=== PATIENT | female | born 1950 | race Caucasian/White ===

== ENCOUNTER 2017-02-17 06:58 | Emergency (ER) | payer OTHER ==
[2017-02-17] MEDS ORDERED: ALBUTEROL SULFATE 2.5 MG/3 ML AMPUL.NEB NEB ONE (07:00)
[2017-02-17] MEDS: ASPIRIN 81 MG CHEW TAB PO ONE (07:15)
[2017-02-17] MEDS: ALBUTEROL SULFATE 2.5 MG/3 ML AMPUL.NEB NEB ONE (07:15)
[2017-02-17 07:20] LABS: BASOPHILS % 0.9 (0.0-1.5); EOSINOPHILS % 1.8 % (0.0-6.8); MEAN CORPUSCULAR HEMOGLOBIN 30.7 pg (28.0-34.0); MEAN CORPUSCULAR VOLUME 92.3 fl (80.0-100.0); MONOCYTES % 3.1 % (0.0-11.0); NEUTROPHILS # 3.5 # k/uL (1.4-7.7)
[2017-02-17 07:39] LABS: eGFR (African) > 60; eGFR (Non-African) > 60
[2017-02-17] MEDS: NITROGLYCERIN 0.4 MG TAB.SUBL SL ONE (08:25)
[2017-02-17] MEDS ORDERED: 0.9 % SODIUM CHLORIDE 1,000 ML IV ONE (08:31)
[2017-02-17] MEDS: ENALAPRILAT DIHYDRATE 1.25 MG/1 ML IVP ONE (08:40)
[2017-02-17] MEDS: FUROSEMIDE 40 MG/4 ML VIAL IVP ONE (09:20)
--- NOTE | 2017-02-17 09:39 | Diagnostic Imaging Report ---
[facility] [id number] [facility] [address] [place], [place]. [address] Report Submission Date: Feb 17, 2017 9:09:40 AM CDT Patient Study Name: ALIS EILZABETH Date: Feb 17, 2017 7:31:27 AM CDT Modality Type: CR Gender: F Description: CHEST : 54 Institution: [facility] Physician: KINJAL FARRIS - ER Examination: PA and lateral chest. History: Evaluate lung joe. Comparison exam: 04 Jan 2014 Findings: PA lateral chest demonstrates it mildly prominent cardiac silhouette. Parenchymal haze as involving the right hilum. Remaining lung joe are clear. No blunting of the costophrenic margins. Osseous structures are appropriate for age. Impression: Mild right hilar infiltrate. No effusion. Electronically signed on Feb 17, 2017 9:09:40 AM CDT by: Angel CHO
--- NOTE | 2017-02-17 10:52 | ED Physician Documentation ---
Dyspnea - HISTORIAN Historian: spouse - HPI Stated Complaint: chest pain; shortness of breath Chief Complaint: Dyspnea Additional Information: prog sob past several days 8# wt gain chest pain-off meds x 1yr Duration: continues in ED Initiating Event: upper respiratory illness (cough prod clear mucous) Severity: moderate Exacerbated By: exertion, laying flat, coughing Associated Symptoms: chest discomfort, productive cough, heart racing - ROS CONST: weakness GI/: none NEURO/PSYCH: denies: headache - PAST HX Lung Disease: asthma, COPD, other (chf) Cardiac Disease: CHF, CAD PE Risk Factors: denies: leg swelling, bedridden, paralysis, hx of PE Surgeries/Procedures: none Other History: TIA Allergies/Adverse Reactions: Allergies Allergy/AdvReac Type Severity Reaction Status Date / Time adhesive Allergy Verified 02/17/17 07:27 Home Medications: Ambulatory Orders Medication Instructions Recorded Furosemide [Lasix] 40 mg PO DAILY #30 tablet 02/17/17 Lisinopril 5 mg PO 1T #30 tablet 02/17/17 - SOCIAL HX Smoking History: less than 1 pack/day Alcohol Use: none Drug Use: none - FAMILY HX Family History: cardiac disease, other (f-d-h m-d-renal failure) - VITAL SIGNS Vital Signs: Vital Signs Temp Pulse Resp BP Pulse Ox 97.6 F 89 22 124/64 97 02/17/17 07:17 02/17/17 07:17 02/17/17 07:17 02/17/17 07:17 02/17/17 07:40 - REVIEWED ASSESSMENTS Nursing Assessment Reviewed: Yes Vitals Reviewed: Yes ED Results Lab/Radiology - Lab Results Lab Results: Lab Results 02/17/17 02/17/17 02/17/17 07:13 07:13 07:13 WBC RBC Hgb Hct MCV MCH MCHC RDW Plt Count Neut % (Auto) Lymph % (Auto) [place] % (Auto) Eos % (Auto) Baso % (Auto) Neut # (Auto) Lymph # (Auto) [place] # (Auto) Eos # (Auto) Baso # (Auto) Reactive Lymphs % Reactive Lymphs # Sodium 139 mmol/L mmol/L (136-145) Potassium 4.0 mmol/L mmol/L (3.5-5.0) Chloride 107 mmol/L mmol/L (98-110) Carbon Dioxide 29 mmol/L mmol/L (20-32) BUN 15 mg/dL mg/dL (10-26) Creatinine 0.9 mg/dL mg/dL (0.4-1.5) Estimated Creat Clear 81 Est GFR ( Amer) > 60 (60 - ) Est GFR (Non-Af Amer) > 60 (60 - ) Glucose 128 mg/dL H mg/dL (70-99) Calcium 9.6 mg/dL mg/dL (8.5-10.5) Total Bilirubin 0.4 mg/dL mg/dL (0.2-1.2) AST 44 U/L H U/L (0-41) ALT 39 U/L U/L (0-45) Alkaline Phosphatase 81 U/L U/L (46-116) Creatine Kinase 71 U/L U/L (0-225) Troponin I < 0.03 ng/mL L ng/mL (0.03-0.06) NT-Pro-B Natriuret Pep 4415.3 pg/mL H pg/mL (15.0-125.0) Total Protein 6.8 g/dL g/dL (6.0-8.5) Albumin 4.3 g/dL g/dL (3.0-5.5) 02/17/17 07:13 WBC 5.40 K/ul K/ul (4.00-12.00) RBC 4.11 M/ul M/ul (3.90-5.20) Hgb 12.6 g/dL g/dL (12.0-16.0) Hct 37.9 % % (34.5-46.5) MCV 92.3 fl fl (80.0-100.0) MCH 30.7 pg pg (28.0-34.0) MCHC 33.3 g/dL g/dL (30.0-36.0) RDW 13.5 % % (11.3-14.3) Plt Count 273 K/mm3 K/mm3 (130-400) Neut % (Auto) 64.0 % % (39.0-79.0) Lymph % (Auto) 29.2 % % (16.0-50.0) [place] % (Auto) 3.1 % % (0.0-11.0) Eos % (Auto) 1.8 % % (0.0-6.8) Baso % (Auto) 0.9 (0.0-1.5) Neut # (Auto) 3.5 # k/uL # k/uL (1.4-7.7) Lymph # (Auto) 1.6 # k/uL # k/uL (0.6-4.0) [place] # (Auto) 0.2 # k/uL # k/uL (0.0-0.9) Eos # (Auto) 0.1 # k/uL # k/uL (0.0-0.6) Baso # (Auto) 0.0 # k/uL # k/uL (0.0-0.5) Reactive Lymphs % 0.9 % % (0.0-5.0) Reactive Lymphs # 0.0 # k/uL # k/uL (0.0-0.8) Sodium Potassium Chloride Carbon Dioxide BUN Creatinine Estimated Creat Clear Est GFR ( Amer) Est GFR (Non-Af Amer) Glucose Calcium Total Bilirubin AST ALT Alkaline Phosphatase Creatine Kinase Troponin I NT-Pro-B Natriuret Pep Total Protein Albumin - Radiology Radiology Impressions: cxr = cardiomegally CHF - Orders Orders: ED Orders Category Date Time Status Continuous EKG monitoring Q30M Care 02/17/17 07:10 Active Continuous Pulse Oximetry Q30M Care 02/17/17 07:[address] IV Lock 1T Care 02/17/17 07:11 Active CHEST P.A.&LAT 2 VIEWS [RAD] Stat Exams 02/17/17 07:10 Taken BNP [NT-proBNP] Stat Lab 02/17/17 07:13 Completed CBC/PLATELET/DIFF Routine Lab 02/17/17 07:13 Completed CMP Routine Lab 02/17/17 07:13 Completed CREATINE KINASE Routine Lab 02/17/17 07:13 Completed TROPONIN I (cTnI) Stat Lab 02/17/17 07:13 Completed Albuterol Sulfate [Ventolin] Med 02/17/17 07:00 Discontinued 2.5 mg NEB .STK-MED ONE Albuterol Sulfate [Ventolin] Med 02/17/17 07:12 Discontinued 2.5 mg NEB NOW ONE Aspirin Med 02/17/17 07:10 Discontinued 324 mg PO NOW ONE Enalaprilat Dihydrate [Vasotec] Med 02/17/17 08:25 Discontinued 2.5 mg IVP NOW ONE Furosemide [Lasix] Med 02/17/17 08:26 Discontinued 40 mg IVP NOW ONE Nitroglycerin [Nitroquick] Med 02/17/17 08:21 Discontinued 0.4 mg SL NOW ONE Oxygen Daily Oxygen 02/17/17 07:15 Ordered EKG WITH COMPARISON Stat Ther 02/17/17 07:10 Ordered Dyspnea Physical Exam - EXAM General Appearance: mild distress EENT: eye inspection normal Neck: nml inspection (mild hjr) Respiratory: speaks full sentences, decreased air movement, wheezes, rales, rhonchi. No: no resp. distress, breath sounds nml CVS: reg. rate & rhythm, no murmur Abdomen: non-tender, no distention, no ascites Skin: color nml, no rash. No: cyanosis, diaphoresis, pallor, ecchymosis Extremities: non-tender, normal range of motion, no edema Neuro/Psych: oriented x3, motor nml, sensation nml Discharge Clincal Impression: ac exab CHF Prescriptions: Furosemide [Lasix] 40 mg PO DAILY #30 tablet Lisinopril 5 mg PO 1T #30 tablet Referrals: Richard Santoyo MD [Primary Care Provider] - 2 Days Home Medications: Ambulatory Orders Furosemide [Lasix] 40 mg PO DAILY #30 tablet 02/17/17 Lisinopril 5 mg PO 1T #30 tablet 02/17/17 Condition: Good Disposition: 01 HOME, SELF-CARE Decision to Admit: NO Decision Time: 10:52
[2017-02-17 11:18] VITALS: BP 108/59
== END 2017-02-17 11:05 | disposition home or self-care (01) ==
LOC: ED 06:58
DX: I50.9 Heart failure, unspecified (principal)
CPT/HCPCS: 71020; 80053; 82550; 83880; 84484; 85025; J1940; J3490; J7030; 96361; 96374; 96375; 99283; S1016

== ENCOUNTER 2017-04-21 20:07 | Emergency (ER) | payer OTHER ==
[2017-04-21] MEDS ORDERED: ASPIRIN 81 MG CHEW TAB PO ONE (20:53)
[2017-04-21] MEDS ORDERED: NITROGLYCERIN 0.4 MG TAB.SUBL SL PRN (21:06)
[2017-04-21] MEDS ORDERED: FUROSEMIDE 20 MG/2 ML VIAL IVP ONE (21:07)
[2017-04-21] MEDS ORDERED: NITROGLYCERIN 0.4 MG TAB.SUBL SL ONE (21:08)
[2017-04-21 21:17] LABS: eGFR (African) > 60; eGFR (Non-African) > 60
[2017-04-21] MEDS ORDERED: 0.9 % SODIUM CHLORIDE 1,000 ML IV ONE (21:17)
--- NOTE | 2017-04-21 21:23 | ED Physician Documentation ---
Chest Pain - HISTORIAN Historian: patient, spouse - HPI Stated Complaint: SOA/ CHEST HEAVINESS Chief Complaint: Dyspnea Additional Information: c/o chest heaviness sob dec ua output no dep edema - out of meds past 3 days -va pt unable to see pcp for eval and meds refill. lasst meds order here in the ED. Onset: days ago (past 2-3 days) Timing: gradual onset, still present Duration: waxing, waning Last known Well Date: 04/21/17 Last Known Well Time: 15:15 Context: emotional upset, activity Severity: moderate Quality: pressure, tightness Chest Pain Radiation: no radiation Chest Pain Signs/Symptoms: denies: nausea, vomiting, diaphoresis Worsened By: exertion, movement Relieved By: sitting up - ROS CONST: no problems MS/LYMPH: denies: ankle swelling SKIN/ENDO: none NEURO/PSYCH: none - PAST HX [place] risk factors: hypertension, cardiac disease, CHF, other (tia ) Neuro deficit: none GI disease: none Surgeries/Procedures: none Allergies/Adverse Reactions: Allergies Allergy/AdvReac Type Severity Reaction Status Date / Time adhesive Allergy Verified 02/17/17 07:27 Home Medications: Ambulatory Orders Medication Instructions Recorded Furosemide [Lasix] 40 mg PO DAILY #30 tablet 02/17/17 Lisinopril 5 mg PO 1T #30 tablet 02/17/17 - SOCIAL HX Smoking History: cigarettes (4-5/day) Alcohol Use: none Drug Use: none - FAMILY HX Family HX: none - VITAL SIGNS Vital Signs: Vital Signs Temp Pulse Resp BP Pulse Ox 98.2 F 92 H 18 101/72 98 04/21/17 20:10 04/21/17 20:10 04/21/17 20:10 04/21/17 20:10 04/21/17 20:10 - REVIEWED ASSESSMENTS Nursing Assessment Reviewed: Yes Vitals Reviewed: Yes ED Results Lab/Radiology - Orders Orders: ED Orders Category Date Time Status Continuous EKG monitoring Q30M Care 04/21/17 20:53 Ordered Continuous Pulse Oximetry Q30M Care 04/21/17 20:[address] IV Lock 1T Care 04/21/17 21:08 Ordered CHEST 1 VIEW [RAD] Stat Exams 04/21/17 20:53 Ordered CBC/PLATELET/DIFF Routine Lab 04/21/17 20:53 Ordered CMP Routine Lab 04/21/17 20:53 Ordered CREATINE KINASE Routine Lab 04/21/17 20:53 Ordered TROPONIN I (cTnI) Stat Lab 04/21/17 20:53 Ordered Aspirin Med 04/21/17 20:53 Once 324 mg PO NOW ONE Furosemide [Lasix] Med 04/21/17 21:07 Once 20 mg IVP NOW ONE NORMAL SALINE @ 100 MLS/HR(1000ml) Med 04/21/17 21:30 Ordered 0.9 % Sodium Chloride [Normal Saline] 1,000 ml IV Q10H Nitroglycerin [Nitroquick] Med 04/21/17 21:06 Ordered 0.4 mg SL Q5M PRN Oxygen Daily Oxygen 04/21/17 21:00 Ordered EKG WITH COMPARISON Stat Ther 04/21/17 20:53 Ordered Chest Pain Physical Exam - EXAM General Appearance: moderate distress (just saw run of V-TACK 12 BEATS self limited on monitor) EENT: eye inspection normal Neck: nml inspection, JVD present Respiratory: decreased air movement, wheezes, rales (heart failure). No: nml breath sounds CVS: No: reg. rate & rhythm (self limited v-tach 12 beats prev on monitor) Abdomen: soft, non-tender Skin: warm/dry, normal color. No: cyanosis, diaphoresis, jaundice Neuro: oriented X3, motor nml, sensation nml, mood/affect nml, cognition normal Discharge Clincal Impression: CHF NSTEMI SELF [facility] Referrals: Rihcard Santoyo MD [Primary Care Provider] - 2 Days Home Medications: Ambulatory Orders Furosemide [Lasix] 40 mg PO DAILY #30 tablet 02/17/17 Lisinopril 5 mg PO 1T #30 tablet 02/17/17 Comments: tnsf [facility] [address] SEN N-STEMI Condition: Fair Disposition: XFER SHT-TRM HOSP Decision to Admit: [id number] Decision Time: 21:51
[2017-04-21] MEDS ORDERED: 0.9 % SODIUM CHLORIDE 1,000 ML IV SCH (21:30)
[2017-04-21] MEDS ORDERED: LORazepam 2 MG/ML VIAL IVP ONE (21:55)
[2017-04-21] MEDS ORDERED: LORazepam 1 MG TABLET PO ONE (21:55)
[2017-04-21] MEDS ORDERED: LORazepam 2 MG/ML VIAL ONE (21:56)
--- NOTE | 2017-04-21 22:07 | Diagnostic Imaging Report ---
KINJAL FARRIS [facility] [address] [facility].[address] [address] Report Submission Date: Apr 21, 2017 9:24:43 PM CDT Patient Study Name: ALIS ELIZABETH Date: Apr 21, 2017 9:06:59 PM CDT Modality Type: CR Gender: F Description: CHEST : 54 Institution: [facility] Physician: KINJAL FARRIS Chest - one-view Clinical history: Chest pain. Findings: Examination of the chest in single portable AP view 04/21/2017 2106 hours with comparison to examination of 02/17/2017 demonstrates again cardiomegaly and aortic atherosclerosis. Right hilum is prominent without significant change. Rule out underlying mass or adenopathy. Monitor leads superimpose the chest. Impression: 1. Enlarged right hilum. Rule out right hilar mass or adenopathy. 2. Cardiomegaly and aortic atherosclerosis. Electronically signed on Apr 21, 2017 9:24:43 PM CDT by: Vinny CHO
[2017-04-21 22:13] LABS: BASOPHILS % 0.6 (0.0-1.5); MEAN CORPUSCULAR HEMOGLOBIN 30.2 pg (28.0-34.0); MEAN CORPUSCULAR VOLUME 93.9 fl (80.0-100.0); MONOCYTES % 3.5 % (0.0-11.0); NEUTROPHILS # 3.9 # k/uL (1.4-7.7)
[2017-04-21 22:32] VITALS: BP 116/71
== END 2017-04-21 22:00 | disposition short-term general hospital (02) ==
LOC: ED 20:07
DX: I50.9 Heart failure, unspecified (principal)
CPT/HCPCS: 71010; 80053; 82550; 84484; 85025; J1940; J2060; J7030; 96361; 96374; 96375; 99284; S1016